=== PATIENT | female | born 1975 | race Caucasian/White ===

== ENCOUNTER → 2025-06-25 15:09 | Outpatient (REF) | payer BC, SELFPAY ==
[2025-06-25 15:50] LABS: Hematocrit 36.5 % (37.0-47.0); Hemoglobin 10.7 g/dL (12.0-16.0); Mean Corp Hgb Conc. 29.3 g/dL (33.0-37.0); Mean Corpuscular Volume 73.9 fL (81.0-99.0); Nucleated Red Blood Cells % 0 %; Platelet Count 485 10^3/uL (130-400); Red Cell Dist. Width 19.0 % (11.5-14.5)
[2025-06-25 16:10] LABS: ALT (SGPT) 14 U/L (0-35); AST (SGOT) 22 U/L (14-36); Albumin 4.7 g/dl (3.5-5.0); Alkaline Phosphatase 122 U/L (38-126); Blood Urea Nitrogen 16 mg/dl (7-17); Calcium 10.2 mg/dl (8.4-10.2); Carbon Dioxide 27 mmol/L (22-30); Chloride 104 mmol/L (98-107); Glucose 99 mg/dl (70-99); HDL Cholesterol 106 mg/dl; Iron 38 ug/dl (37-170); LDL Cholesterol, Calculated 134 mg/dl; Potassium 5.1 mmol/L (3.5-5.1); Sodium 139 mmol/L (135-145); Total Protein 7.8 g/dl (6.3-8.2); Very Low Density Lipoprotein 21 mg/dl (0-30); eGFR > 60.00
[2025-06-25 16:19] LABS: Total Iron Binding Capacity 404 ug/dl (265-497)
[2025-06-25 17:18] LABS: Ferritin 6.0 ng/ml (11.1-264.0)
== END ==
LOC: REG 15:09
PROVIDERS: ATTENDING PHYSICIAN Physician Assistant; FAMILY PHYSICIAN Family Medicine
DX: M54.12 Radiculopathy, cervical region (principal); M54.16 Radiculopathy, lumbar region; H53.9 Unspecified visual disturbance; R07.89 Other chest pain; F90.0 Attention-deficit hyperactivity disorder, predominantly inattentive type; F33.41 Major depressive disorder, recurrent, in partial remission; Z98.84 Bariatric surgery status; Z72.0 Tobacco use; E78.00 Pure hypercholesterolemia, unspecified; D50.9 Iron deficiency anemia, unspecified; Z12.31 Encounter for screening mammogram for malignant neoplasm of breast
CPT/HCPCS: 36415; 80053; 80061; 82728; 83540; 83550; 85025

== ENCOUNTER 2025-07-11 20:05 | Emergency (ER) | payer BC, SELFPAY ==
[2025-07-11 20:10] VITALS: BP 175/106
[2025-07-11 20:25] VITALS: BP 150/93
[2025-07-11 20:30] VITALS: BMI 26.3
--- NOTE | 2025-07-11 20:36 | EDRN ---
Pt feels better now but says earlier she had a crushing chest pain in middle of her chest. Pt says she tried to talk herself out of it and says it went away but it returned and she started feeling it in her R neck. Pt has had this pain since 1943
and says she felt sweaty and had nausea. No sob, abd pain, vomiting, fever/chills/cough. weakness, dizziness.
--- NOTE | 2025-07-11 20:48 | EDRN ---
Pt was getting into her car when chest pain started. Pt says at its worst, chest pain was 6/10 and now it is 1/10. Pain described as a 'tightness coming from within' now. Pt denies recent travel, air and long car rides. Pt notes pain in R
lateral lower leg into her ankle. Pt feels 'like there is something stuck in my throat, where my geraldo's apple is I feel pressure.'
[2025-07-11 20:51] LABS: Hematocrit 32.6 % (37.0-47.0); Hemoglobin 9.9 g/dL (12.0-16.0); Mean Corp Hgb Conc. 30.4 g/dL (33.0-37.0); Mean Corpuscular Volume 71.8 fL (81.0-99.0); Nucleated Red Blood Cells % 0 %; Platelet Count 499 10^3/uL (130-400); Red Cell Dist. Width 18.5 % (11.5-14.5)
[2025-07-11 21:00] VITALS: BP 142/84
[2025-07-11 21:13] LABS: ALT (SGPT) 14 U/L (0-35); AST (SGOT) 21 U/L (14-36); Albumin 4.4 g/dl (3.5-5.0); Alkaline Phosphatase 122 U/L (38-126); Blood Urea Nitrogen 9 mg/dl (7-17); Calcium 9.7 mg/dl (8.4-10.2); Carbon Dioxide 25 mmol/L (22-30); Chloride 103 mmol/L (98-107); Estimated Creatinine Clearance 70 ml/min; Glucose 95 mg/dl (70-99); Potassium 4.7 mmol/L (3.5-5.1); Sodium 135 mmol/L (135-145); Total Protein 7.0 g/dl (6.3-8.2); eGFR > 60.00
[2025-07-11 21:26] LABS: Troponin I < 0.012 ng/ml
--- NOTE | 2025-07-11 21:28 | ED.GENMED ---
History of Present Illness
General
Chief Complaint: Chest Pain
Source: patient
Exam Limitations: none
Time Seen by Provider: 07/11/25 21:17
History of Present Illness
History of Present Illness:
50-year-old female with history of ADHD and bipolar presents with the sudden onset of crushing chest pain that radiated into her jaw that started around 7:40 PM while driving. This is pretty severe at its onset but the time my exam she notes she is
pain-free. She feels as though she overreacted. She denies associated nausea diaphoresis or vomiting. No recent travel or surgery. No leg swelling or calf pain. The pain was not pleuritic. She denies any excess use of alcohol or NSAIDs or
caffeine. She does not smoke. No other complaints at this time
Past History
Past History
ED Past Medical History: Other (Ovarian cyst, migraine headache); Negative Asthma, HTN, Hypercholesterolemia or NIDDM
ED Past Surgical History: Appendectomy, Gynecological (OOphorectomy) and Other (Gastric bypass,)
Social History
Tobacco: Former smoker
Alcohol: Occasional
Personal:
Living: with family
Employment: Employed
Family History
Family History: Hypertension
Phy Exam
Physical Exam
Physical Exam:
General: Well-appearing female no acute respiratory distress
HEENT normal cephalic atraumatic
Heart: Regular rate and rhythm
Lungs: Clear no wheeze
Abdomen is soft nontender
Extremities no cyanosis or edema or calf tenderness
Scores
Heart Score for Chest Pain Patients
STEMI patient?: No
History: Slightly or Non-Suspicious
ECG: Normal
Age: >45 - <65 years
Risk Factors: 1 or 2 Risk Factors
Troponin: </= Normal Limit
Heart Score for Chest Pain Patients: 2
Heart Score Risk: 2.5% MACE over next 6 weeks
Course
Orders/Labs/Results
Orders:
Orders
07/11/25 20:06
ECG [Electrocardiogram (*1)] Urgent
Reason for Study: Chest Pain
07/11/25 20:07
EKG- Treatment ONCE
07/11/25 20:38
Cardiac Monitoring- Treatment ONCE
IV Insert/Care/Rem.- Treatment PRN
O2 Therapy [RESP] Urgent
Titrate/Wean O2 to maintain O2 sat greater than (%): 90
Special Instructions: Maintain sats >/=90%
Pulse Ox/spot Check [RESP] Urgent
Quantity: 1
Special Instructions: ON ROOM AIR
07/11/25 20:45
Complete Blood Count/With Diff Urgent
Comprehensive Metabolic Panel Urgent
Troponin I Urgent
07/11/25 21:25
CR Chest - 2 Views Urgent
Comment:
Reason For Exam: chest pain
07/11/25 23:29
Troponin I Urgent
Abnormal Lab Results
07/11/25
20:45
Hgb 9.9 L g/dL
(12.0-16.0)
Hct 32.6 L %
(37.0-47.0)
MCV 71.8 L fL
(81.0-99.0)
MCH 21.8 L pg
(27.0-31.0)
MCHC 30.4 L g/dL
(33.0-37.0)
RDW 18.5 H %
(11.5-14.5)
Plt Count 499 H 10^3/uL
(130-400)
07/11/25 20:45
07/11/25 20:45
Vital Signs
Initial and Last Documented VS:
Initial Vital Signs
Temp Pulse Resp BP Pulse Ox
98.3 F 86 20 175/106 99
07/11/25 20:10 07/11/25 20:10 07/11/25 20:10 07/11/25 20:10 07/11/25 20:10
Last Documented Vital Signs
Temp Pulse Resp BP Pulse Ox
98.3 F 72 14 136/85 100
07/11/25 20:10 07/12/25 00:00 07/12/25 00:00 07/12/25 00:00 07/12/25 00:00
MDM/Problems Addressed
Differential Diagnosis Includes:
Patient with chest pain that has since resolved. EKG shows sinus rhythm without ischemic changes and a rate of 88. No risk for PE. Do not suspect dissection. Vital signs are stable no respiratory distress. Initial troponin undetectable repeat
troponin pending.
*Pulse Oximetry
SaO2: 97
Oxygen Mode of Delivery: Room air
Patient hypoxic: no
*Critical Care Note
Total Time (30-74mins, 75-104mins- exclusive of procedures): Not Applicable
Update Note
Update Note:
Initial and repeat troponins were negative. Chest x-ray clear. Patient remained chest pain-free since arrival. No limited signs of ACS PE or dissection. Will refer to cardiology as outpatient. Stable for discharge
ED Attending Note
-
Portions of this chart may have been created with voice recognition software.� Occasional wrong word or��sound alike� substitutions may have occurred due to the inherent limitations of voice recognition software.
Discharge Plan
Departure
Patient Disposition: Home (Routine Discharge)
Date of Disposition: 07/12/25
Time of Disposition: 00:36
Patient with high blood pressure during this ER visit?: No
Discharge Problem:
Chest pain
Instructions: Chest Pain DCA Follow Up
Prescriptions:
No Action
multivitamin with folic acid [Tab-A-Marcy] 1 TABLET tablet
1 tab PO DAILY
Patient Comments:
gummie vitamins
lamotrigine [Lamictal] 200 MG tablet
200 mg PO BID
pantoprazole 40 MG tablet,delayed release (DR/EC)
40 mg PO DAILY
dextroamphetamine-amphetamine [Adderall] 10 mg Tablet
10 mg PO DAILY PRN (Reason: adhd)
lorazepam [Ativan] 0.5 mg Tablet
0.25 mg PO HS PRN (Reason: sleep)
lisdexamfetamine [Vyvanse] 60 mg Capsule
60 mg PO DAILY
bupropion HCl [Wellbutrin SR] 150 mg Tablet Sustained-Release 12 Hr
150 mg PO BID
quetiapine [Seroquel XR] 50 mg Tablet Extended Release 24 Hr
50 mg PO HS
Referrals:
Tony Berman MD [Family Provider, Family Practice]
Activity Restrictions/Additional Instructions:
Please return here for worsening symptoms otherwise follow-up with cardiology
Interventions
Interventions:
*Risk Screen - Suicide Last Done: 07/11/25 20:30
*General Assessment Last Done: 07/11/25 20:10
*Neglect/Abuse Screening Last Done: 07/11/25 20:30
*ED- Fall Risk Assessment Last Done: 07/11/25 20:30
*ED Influenza Vaccine History Last Done: 07/11/25 20:30
ED- Cardiac Assessment Last Done: 07/11/25 20:51
Discharge Date and Time
Print Language: BENGALI
[2025-07-11 21:57] VITALS: BP 135/93
[2025-07-11 22:00] VITALS: BP 146/87
[2025-07-11 23:00] VITALS: BP 150/90
[2025-07-12] VITALS: BP 136/85
[2025-07-12 00:10] LABS: Troponin I < 0.012 ng/ml
== END 2025-07-12 01:13 | disposition home or self-care (01) ==
LOC: EMR 20:05
PROVIDERS: Physician Assistant; EMERGENCY PHYSICIAN Emergency Medicine; FAMILY PHYSICIAN Family Medicine
DX: R07.9 Chest pain, unspecified (principal); F31.9 Bipolar disorder, unspecified; F90.9 Attention-deficit hyperactivity disorder, unspecified type; Z98.84 Bariatric surgery status; Z87.891 Personal history of nicotine dependence
CPT/HCPCS: 99284; 71046; 80053; 84484; 85025; 93005

== ENCOUNTER 2025-07-31 13:57 | Outpatient (RCR) | payer BC, SELFPAY ==
[2025-07-24 13:50] VITALS: BP 146/94
[2025-07-24] MEDS: INJECTAFER 265 MG IV (14:11)
[2025-07-24 15:39] VITALS: BP 152/97
[2025-07-31 14:35] VITALS: BP 149/88
[2025-07-31] MEDS: INJECTAFER 265 MG IV (14:52)
[2025-07-31 15:35] VITALS: BP 150/92
== END 2025-08-08 23:59 | disposition home or self-care (01) ==
LOC: OID 13:57
PROVIDERS: ATTENDING PHYSICIAN Physician Assistant
DX: K21.9 Gastro-esophageal reflux disease without esophagitis (principal); D63.8 Anemia in other chronic diseases classified elsewhere; E78.00 Pure hypercholesterolemia, unspecified; M54.16 Radiculopathy, lumbar region; F33.41 Major depressive disorder, recurrent, in partial remission; F90.0 Attention-deficit hyperactivity disorder, predominantly inattentive type; Z98.84 Bariatric surgery status
CPT/HCPCS: 96365; J1439

== ENCOUNTER → 2025-08-21 12:39 | Outpatient (REF) | payer BC, SELFPAY | LOC: HWRCS 12:39 | PROVIDERS: ATTENDING PHYSICIAN Internal Medicine Cardiovascular Disease; FAMILY PHYSICIAN Family Medicine | DX: R07.9 Chest pain, unspecified (principal); R06.09 Other forms of dyspnea | CPT/HCPCS: 93306 ==

== ENCOUNTER → 2025-08-28 07:36 | Outpatient (REF) | payer BC, SELFPAY | LOC: HWRCS 07:36 | PROVIDERS: ATTENDING PHYSICIAN Internal Medicine Cardiovascular Disease; FAMILY PHYSICIAN Family Medicine; REFERRING PHYSICIAN Physician Assistant | DX: R07.9 Chest pain, unspecified (principal); R06.09 Other forms of dyspnea | CPT/HCPCS: 78452; 93017; A9500 ==